=== PATIENT | female | born 1990 | race Caucasian/White ===

== ENCOUNTER → 2020-08-27 10:08 | Outpatient (CLI) | payer OTHER, SELFPAY ==
[2020-08-27 12:15] LABS: Free T4, Direct Thyroxine 0.98 ng/dL (0.78-2.19)
[2020-08-27 12:28] LABS: Thyroid Stimulating Hormone 1.71 uIU/mL (0.47-4.68)
== END ==
PROVIDERS: PCP Obstetrics & Gynecology; Referring Provider Obstetrics & Gynecology; Visit Provider Obstetrics & Gynecology
DX: R23.2 Flushing (principal)
CPT/HCPCS: 36415; 84439; 84443